=== PATIENT | female | born 2000 | race Two or more races ===

== ENCOUNTER 2022-11-10 20:01 | Emergency (ER) | payer MEDICAID ==
[~2022-11-10] VITALS: Ht 165.1 cm; Wt 56.0 kg
[2022-11-10 21:36] VITALS: BP 118/78
== END 2022-11-10 22:38 | disposition left against medical advice (07) ==
LOC: ER 20:01
DX: Z53.21 Procedure and treatment not carried out due to patient leaving prior to being seen by health care provider (principal)
CPT/HCPCS: 99281

== ENCOUNTER 2023-03-05 01:53 | Emergency (ER) | payer BC, MEDICAID ==
[~2023-03-05] VITALS: Ht 162.6 cm; Wt 60.0 kg
[2023-03-05 01:58] VITALS: TEMP 99; O2SAT 100
[2023-03-05] MEDS ORDERED: KETOROLAC 30MG/ML VIAL IV STA (03:39)
[2023-03-05] MEDS ORDERED: SODIUM CHLORIDE 0.9% 1,000 ML IV ONE (03:45)
[2023-03-05 04:08] VITALS: BP 108/75; PULSE 88; RESP 18
[2023-03-05 04:34] LABS: BASOPHILS % 0.5 % (0.0-2.0); EOSINOPHILS % 0.8 % (0.0-5.0); HEMATOCRIT. 40.3 % (36.0-48.0); HEMOGLOBIN. 13.7 g/dL (12.0-16.0); LYMPHOCYTES % 12.7 % (20.0-50.0); MEAN CORPUSCULAR HEMOGLOBIN 30.8 pg (28.0-32.0); MEAN CORPUSCULAR VOLUME 90.8 fL (81.0-99.0); MEAN PLATELET VOLUME 9.6 fl (7.4-10.4); MONOCYTES % 2.7 % (2.0-8.0); NEUTROPHILS % 83.3 % (40.0-76.0); PLATELET 279 x1000/uL (130-400); RED BLOOD CELL COUNT 4.44 mill/uL (4.2-5.4); RED CELL DISTRIBUTION WIDTH 13.1 % (11.6-14.6)
[2023-03-05 04:36] LABS: CHLORIDE 109 mEq/L (98-107)
[2023-03-05 04:57] LABS: HCG SCREEN NEGATIVE
[2023-03-05] MEDS ORDERED: IBUP-2028 MT (05:35)
[2023-03-05] MEDS ORDERED: IOHEXOL-300 100 ML BOTTLE ONE (06:35)
== END 2023-03-05 05:46 | disposition home or self-care (01) ==
LOC: ER 01:53
DX: R10.84 Generalized abdominal pain (principal); V49.49XA Driver injured in collision with other motor vehicles in traffic accident, initial encounter; Y93.89 Activity, other specified; Y92.89 Other specified places as the place of occurrence of the external cause; Y99.8 Other external cause status
CPT/HCPCS: 99285; 70450; 96374; 71045; 96361; 80053; 84703; 83690; 85025; 36415; 73110; 73130; 74177; 93005; Q9967; J1885; J7030

== ENCOUNTER 2023-10-29 00:26 | Emergency (ER) | payer BC, MEDICAID ==
[~2023-10-29] VITALS: Ht 165.1 cm; Wt 57.0 kg
[~2023-10-29 00:26] MED LIST: IBUP-2028 MT
[2023-10-29 00:38] VITALS: O2SAT 99
[2023-10-29] MEDS: KETOROLAC 30MG/ML VIAL IM ONE (01:47)
[2023-10-29 02:55] VITALS: BP 125/78; PULSE 88; RESP 19; TEMP 98
== END 2023-10-29 02:54 | disposition home or self-care (01) ==
LOC: ER 00:26
DX: G90.522 Complex regional pain syndrome I of left lower limb (principal)
CPT/HCPCS: 81025; 73590; 96372; 99283; J1885; Z7610

== ENCOUNTER 2024-02-21 22:42 | Emergency (ER) | payer BC, OTHER ==
[~2024-02-21] VITALS: Ht 167.6 cm; Wt 53.0 kg
[2024-02-21 23:11] VITALS: BP 114/78; PULSE 74; RESP 16; TEMP 97.9; O2SAT 100
== END 2024-02-22 04:56 | disposition left against medical advice (07) ==
LOC: ER 22:42
DX: M54.50 Low back pain, unspecified (principal); Z53.21 Procedure and treatment not carried out due to patient leaving prior to being seen by health care provider